=== PATIENT | female | born 1990 | race Hispanic/Latino ===

== ENCOUNTER 2018-04-27 08:15 | Inpatient (IN) | payer BC ==
--- NOTE | 2018-04-27 09:55 | C.PDOC ---
History Of Present Illness 28 y/o female, transfer from [facility], presents to ER complaining of suicidal ideation and depression. Patient has been transferred to ER for psychiatric admission. Patient denies having homicidal ideation, fever,chills, CP, SOB, nausea, and vomiting. Time Seen by Provider: 04/27/18 08:24 Chief Complaint (Nursing): Psychiatric Evaluation History Per: Patient History/Exam Limitations: no limitations Onset/Duration Of Symptoms: Days Current Symptoms Are (Timing): Still Present Severity: Moderate Past Medical History Reviewed: Historical Data, Nursing Documentation, Vital Signs Vital Signs: Last Vital Signs Temp 98.8 F 04/27/18 08:21 Pulse 63 04/27/18 08:21 Resp 18 04/27/18 08:21 BP 131/86 04/27/18 08:21 Pulse Ox 97 04/27/18 08:21 - Medical History PMH: Anxiety, Depression Denies: Diabetes, Hepatitis, HIV, HTN, Seizures, Sexually Transmitted Disease Surgical History: No Surg Hx Family History: States: No Known Family Hx - Social History Hx Alcohol Use: Yes Hx Substance Use: No - Immunization History Hx Tetanus Toxoid Vaccination: Yes Hx Influenza Vaccination: Yes Hx Pneumococcal Vaccination: Yes Review Of Systems Except As Marked, All Systems Reviewed And Found Negative. Constitutional: Negative for: Fever, Chills Cardiovascular: Negative for: Chest Pain Respiratory: Negative for: Shortness of Breath Gastrointestinal: Negative for: Nausea, Vomiting Psych: Positive for: Depression, Suicidal ideation Physical Exam - Physical Exam Appears: No Acute Distress Skin: Normal Color, Warm, Dry Head: Atraumatic, Normacephalic Eye(s): bilateral: Normal Inspection Nose: Normal Oral Mucosa: Moist Neck: Supple Chest: Symmetrical Cardiovascular: Rhythm Regular Respiratory: Normal Breath Sounds, No Rales, No Rhonchi, No Wheezing Neurological/Psych: Oriented x3, Normal Speech ED Course And Treatment O2 Sat by Pulse Oximetry: 97 (RA) Pulse Ox Interpretation: Normal Medical Decision Making Medical Decision Making: Patient has been admitted under the service of . Disposition - Disposition Disposition: HOSPITALIZED Disposition Time: 09:00 Condition: GOOD - POA Present On Arrival: None - Clinical Impression Clinical Impression: Depression - PA / OBSERVATORY DIRECTOR / Resident Statement MD/DO has reviewed & agrees with the documentation as recorded. - Scribe Statement The provider has reviewed the documentation as recorded by the Scribe Summen Santana Provider Attestation All medical record entries made by the Columba were at my direction and personally dictated by me. I have reviewed the chart and agree that the record a ccurately reflects my personal performance of the history, physical exam, medical decision making, and the department course for this patient. I have also personally directed, reviewed, and agree with the discharge instructions and disposition.
--- NOTE | 2018-04-27 12:03 | PCM.BM ---
<Valorie Ragland - Last Filed: 04/27/18 12:01> Treatment Plan Problems - Problems identified on initial assessmt Depression Date Initiated: 04/27/18 Time Initiated: 12:02 Assessment reference: NA Status: Active Self Care Deficit Date Initiated: 04/27/18 Time Initiated: 12:02 Assessment reference: NA Status: Active Feeling of Worthlessness Date Initiated: 04/27/18 Time Initiated: 12:02 Assessment reference: NA Status: Active Treatment assets and liabiliti Patient Assests: adapts well, cooperative, educated, motivated, self-reliant, ADL independent, physically healthy, good support system, negotiates basic needs, cognitively intact Patient Liabilities: live alone (Lives with ), substance abuse (Xanax and Alcohol. BAL 21), medical problems (None) - Milieu Protocol Maintain good personal hygiene: daily Encourage regular showers, daily Remind patient to perform daily oral care, daily Assist patient to perform ADL's (Self care) Conduct patient checks and document Observation sheet: Q15 minutes (Safety) Maintain personal safety: every shift Educate patient to report safety concerns to staff, every shift Monitor environment for contraband/sharps Medication safety: Monitor for expected outcome, potential side effects: every shift, Assess barriers to learning: every shift, Assess readiness for medication education: every shift <Ninfa Saul - Last Filed: 04/28/18 11:23> - Diagnosis (1) Depression Status: Acute Interventions: 04/28/18 11:23 * Assess/adjust medications daily and /or as needed * See patient on an individual basis 7x/week to assess symptoms of depression * Monitor for side effects & effectiveness of medications * <Gwen Barton - Last Filed: 04/29/18 11:41> Family Contact Family involvement: Patient does not wish Family/SO involvement Family contact: Patient declines to allow family contact at present - Goals for Treatment Patient goals for treatment: "I want to be referred to [facility]." Discharge/Continuing Care - Education Needs Education Needs: Patient Medication, Patient Diagnosis/Disease Process, Patient Coping Skills, Patient Placement options, Patient Community resources - Discharge Discharge Criteria: Free of Suicidal thoughts, Normal sleep pattern, Ability to care for self, Reduction of target symptoms Discharge to:: Home - Treatment Team Participation Discussed with Family/SO: No Was Patient/Family/SO present at Treatment Team Meeting: Yes
--- NOTE | 2018-04-27 12:40 | PCM.PSYCH ---
Initial Psychiatric Evaluation - Initial Psychiatric Evaluation Type of Admission: Voluntary Legal Status: Capacity Chief Complaint (in patient's own words): "I got in a fight with my " History of Present Illness and Precipitating Events: The pt is seen, chart reviewed and case discussed. Soft Boarder also spoke to her with her consent. 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 Patient states that she got in an argument with her last night re whether to have children or not. She states that she wants children soon but her claims they are not yet ready in their professional careers for added stress in their lives. She states that the argument heated up at that time and she grabbed a knife and threatened to hurt herself with it. Patient was brought to [place] [facility] and then transferred to [facility] for admission to . 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 Patient reports poor sleep and takes 10 mg of melatonin to fall asleep. She is anhedonic, sad, has low energy and concentration. Her confirms this but says it was not as bad until recently She also reports having anxiety all her life and is an excessive worrier. She denies any auditory of visual hallucinations and paranoia. She reports a previous suicide plan a couple years ago to jump off a building. Patient has a history of depression which she has never taken any medication for but speaks with a therapist. She denies smoking cigarettes, drinks alcohol socially, and denies using illicit drugs currently. Patient states that she has tried a lot of different kinds of drugs in the past such as LSD, cocaine, and marijuana but does not use any of them anymore. Patient reports feeling safe at home with her and has not undergone any domestic violence. Past Psychiatric History: Depression with previous suicide plan to jump off building, sees therapist for several years now Family Psych History: mother, sister and cousin (maternal side)- depression PMHx: GERD Meds: Ranitidine OTC Current Medications: Active Medications Generic Name Dose Route Start Last Admin Trade Name Freq PRN Reason Stop Dose Admin Pneumococcal Polyvalent Vaccine 0.5 ml 04/30/18 10:00 Pneumovax 23 Vaccine IM 04/30/18 10:01 .ONCE ONE Past Psychiatric History - Past Psychiatric History Previous Treatment History: Intensive Outpatient Pertinent Medical Hx (Current Medical&Sleep Prob, Allergies): Allergies Allergy/AdvReac Type Severity Reaction Status Date / Time No Known Allergies Allergy Verified 04/26/18 18:29 No Known Home Med 04/27/18 Review of Systems - Psychiatric Psychiatric: Abnormal Sleep Pattern, Anxiety, Behavioral Changes, Depression, Difficulty Concentrating, Hopelessness, Irritability. absent: Hallucinations, Homicidal Ideation, Paranoia, Suicidal Ideation (denies now) Mental Status Examination - Personal Presentation Personal Presentation: Looks stated age - Affect Affect: Constricted (tearful), Depressed - Motor Activity Motor Activity: Calm - Reliability in Providing Information Reliability in Providing Information: Good - Speech Speech: Organized - Mood Mood: Depressed, Anxious - Formal Thought Process Formal Thought Process: No Impairment - Obsessions/Compulsions Obsessions: No Compulsions: No - Cognitive Functions Orientation: Person, Place, Situation, Time Attention/Concentration: Attentive Abstract Thinking: [place] Estimate of Intelligence: Above Average Judgement: Intact, as evidence by: Insight regarding need for hospitalization Memory: Recent intact, as evidence by: Ability to recall events of the day, Remote intact, as evidenced by: Abilit to recall sig. life events - Risk Risk: Diminished functioning - Strength & Assets Inventory Strength & Assets Inventory: Intelligence, Education, Employment status, Employment history, Skills, Life experience, Cooperative - Limitations Limitations: Other DSM 5 DX - DSM 5 DSM 5 Diagnosis: Major depressive disorder, recurrent, severe Generalized Anxiety Disorder - Recommended/Plan of Treatment Treatment Recommendations and Plan of Treatment: Start lexapro for depression and anxiety As need medications All risks, benefits and alternatives of the meds discussed, and the pt agreed and understood. Attend groups and activities Individual therapy daily Psychoeducation and support daily Encourage compliance with meds and after care Refer to outpatient program Teach healthy lifestyle methods, i.e. diet, exercise, meditation Smoking cessation and patch if needed 32 min Projected ELOS: 4-5 days Prognosis: good with treatment
[2018-04-28 06:39] VITALS: RESP 20
--- NOTE | 2018-04-28 11:21 | PCM.PYCHPN ---
Psychiatric Progress Note - Psychiatric Progress Note Patient seen today, length of contact: 16 min Patient Chief Complaint: "I feel better"" Problems Identified/Issues Discussed: The pt is seen, chart reviewed, case discussed with staff. The pt is compliant with medications and reports no side-effects. Symptoms are improving but needs more time to stabilize. Pt attends groups and activities. Support given, psycho-education provided. After care discussed. Medication Change: Yes (meds change daily) Medical Record Reviewed: Yes Mental Status Examination - Cognitive Function Orientation: Person, Place, Situation, Time Memory: Intact Attention: WNL Concentration: Poor Association: WNL Fund of Knowledge: WNL - Mood Mood: Depressed, Anxious - Affect Affect: Constricted, Depressed - Speech Speech: Appropriate - Formal Thought Process Formal Thought Process: No Impairment - Suicidal Ideation Suicidal Ideation: No - Homicidal Ideation Homicidal Ideation: No Goal/Treatment Plan - Goal/Treatment Plan Need for Continued Stay: Discharge may exacerbated symptoms, Severe functional impairment Progress Toward Problem(s) and Goals/Treatment Plan: Lexapro for depression and anxiety As need medications All risks, benefits and alternatives of the meds discussed, and the pt agreed and understood. Attend groups and activities Individual therapy daily Psychoeducation and support daily Encourage compliance with meds and after care Refer to outpatient program Teach healthy lifestyle methods, i.e. diet, exercise, meditation Smoking cessation and patch if needed Estimated Date of D/C: 04/29/18
[2018-04-29 06:31] VITALS: BP 103/61; PULSE 85; TEMP 98.5; O2SAT 97
--- NOTE | 2018-04-29 10:42 | PCM.PYCHDC ---
Mental Status Examination - Mental Status Examination Orientation: Person Discharge Summary - Discharge Note Consultations:: List each consultation separately and include: 1. Reason for request. 2. Findings. 3. Follow-up Summary of Hospital Course include:: 1. Description of specific treatment plan utilized for patients during their course of treatmen. 2. Summarize the time- course for resolution of acute symptoms and/or regressed behaviors. 3. Describe issues identified and worked on during hospitalization. 4. Describe medication utilized. 5. Describe medical problems identified and treated. 6. Reassessment of suicide risk Summary of Hospital Course: The pt is seen, chart reviewed and case discussed. Turbine Operator also spoke to her with her consent. 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 Patient states that she got in an argument with her last night re whether to have children or not. She states that she wants children soon but her claims they are not yet ready in their professional careers for added stress in their lives. She states that the argument heated up at that time and she grabbed a knife and threatened to hurt herself with it. Patient was brought to [facility] and then transferred to [facility] for admission to . 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 Patient reports poor sleep and takes 10 mg of melatonin to fall asleep. She is anhedonic, sad, has low energy and concentration. Her confirms this but says it was not as bad until recently She also reports having anxiety all her life and is an excessive worrier. She denies any auditory of visual hallucinations and paranoia. She reports a previous suicide plan a couple years ago to jump off a building. Patient has a history of depression which she has never taken any medication for but speaks with a therapist. She denies smoking cigarettes, drinks alcohol socially, and denies using illicit drugs currently. Patient states that she has tried a lot of different kinds of drugs in the past such as LSD, cocaine, and marijuana but does not use any of them anymore. Patient reports feeling safe at home with her and has not undergone any domestic violence. Past Psychiatric History: Depression with previous suicide plan to jump off building, sees therapist for several years now Family Psych History: mother, sister and cousin (maternal side)- depression PMHx: GERD Meds: Ranitidine OTC [facility] and private psychotherapy - Diagnosis (1) Depression Current Visit: Yes Status: Acute - Final Diagnosis (DSM 5) Condition upon Discharge: GOOD Disposition: HOME/ ROUTINE Follow-up Treatment Plan: Lexapro for depression and anxiety As need medications All risks, benefits and alternatives of the meds discussed, and the pt agreed and understood. Attend groups and activities Individual therapy daily Psychoeducation and support daily Encourage compliance with meds and after care Refer to outpatient program Teach healthy lifestyle methods, i.e. diet, exercise, meditation Smoking cessation and patch if needed Prescriptions/Medication Reconciliation: Escitalopram [Lexapro] 10 mg PO DAILY #30 tab traZODone [Desyrel] 100 mg PO HS PRN #30 tab PRN Reason: Insomnia
[2018-04-30] MEDS ORDERED: Pneumococcal 23-Valent Vaccine IM ONE (10:00)
== END 2018-04-29 11:40 | disposition home or self-care (01) | DRG 885 ==
LOC: C.ER 08:15 → C.5E 08:38
PROVIDERS: ADMIT Psychiatry & Neurology Psychiatry; ATTEND Psychiatry & Neurology Psychiatry
PROC: GZHZZZZ Group Psychotherapy (ICD-10-PCS; principal; 2018-04-27)
PROC: GZ58ZZZ Individual Psychotherapy, Cognitive-Behavioral (ICD-10-PCS; 2018-04-27)
PROC: GZ56ZZZ Individual Psychotherapy, Supportive (ICD-10-PCS; 2018-04-27)
DX: F33.2 Major depressive disorder, recurrent severe without psychotic features (principal); R45.851 Suicidal ideations; F41.1 Generalized anxiety disorder; K21.9 Gastro-esophageal reflux disease without esophagitis; Z91.5 Personal history of self-harm; G47.00 Insomnia, unspecified